=== PATIENT | male | born 1950 | race Caucasian/White ===

== ENCOUNTER 2020-11-22 18:43 | Observation (INO) | payer MEDICARE, OTHER ==
[~2020-11-22] VITALS: Ht 182.9 cm; Wt 102.2 kg
--- NOTE | 2020-11-22 19:34 | PHYS DOC ---
Past Medical History Past Medical History: Hypothyroid Additional Past Medical Histor: BPH, SLEEP APNEA Past Surgical History: Cholecystectomy Additional Past Surgical Histo: SHOULDER Smoking Status: Former Smoker Alcohol Use: None Adult General Chief Complaint Chief Complaint: OTHER COMPLAINTS HPI HPI Patient is a 70 year old male with a past medical history of hypothyroidism now presents emergency department complaining of an episode of unresponsiveness. Patient states that he was sleeping when his noticed that he suddenly became sonorous and had gasping breathing. states that she was having difficulty arousing the patient. States that he woke up and since then has had a pressure in the mid portion of his chest with some nausea and lightheadedness. Does state over the last few days has noted increasing sensation of shortness of breath with any type of exertion or activity. Patient does note that he has a history of obstructive sleep apnea and uses CPAP nightly. Denies any radiation of his symptoms right now. Denies any fever, chills, recent sick contacts Review of Systems Review of Systems Constitutional: Denies fever or chills [] Eyes: Denies change in visual acuity, redness, or eye pain [] HENT: Denies nasal congestion or sore throat [] Respiratory: Denies cough or shortness of breath [] Cardiovascular: No additional information not addressed in HPI [] GI: Denies abdominal pain, nausea, vomiting, bloody stools or diarrhea [] : Denies dysuria or hematuria [] Musculoskeletal: Denies back pain or joint pain [] Integument: Denies rash or skin lesions [] Neurologic: Denies headache, focal weakness or sensory changes [] Endocrine: Denies polyuria or polydipsia [] All other systems were reviewed and found to be within normal limits, except as documented in this note. Current Medications Current Medications Current Medications Medications (Trade) Dose Ordered Sig/Madhuri Start Time Stop Time Status Last Admin Dose Admin Acetaminophen (Tylenol) 650 mg PRN Q6HRS PRN 11/22/20 20:30 11/23/20 14:55 DC Al Hydroxide/Mg Hydroxide (Mylanta Plus Xs) 30 ml PRN Q3HRS PRN 11/22/20 20:30 11/23/20 14:55 DC Bisacodyl (Dulcolax Supp) 10 mg PRN DAILY PRN 11/22/20 20:30 11/23/20 14:55 DC Calcium Carbonate/ Glycine (Tums) 500 mg PRN Q3HRS PRN 11/22/20 20:30 11/23/20 14:55 DC Hydromorphone HCl (Dilaudid) 0.4 mg PRN Q1HR PRN 11/22/20 20:30 11/23/20 14:55 DC Magnesium Hydroxide (Milk Of Magnesia) 2,400 mg PRN Q12HR PRN 11/22/20 20:30 11/23/20 14:55 DC Morphine Sulfate (Morphine Sulfate) 2 mg PRN Q1HR PRN 11/22/20 20:30 11/23/20 14:55 DC Ondansetron HCl (Zofran) 4 mg PRN Q6HRS PRN 11/22/20 20:30 11/23/20 14:55 DC Zolpidem Tartrate (Ambien) 5 mg PRN QHS PRN 11/22/20 20:30 11/23/20 14:55 DC Allergies Allergies Allergies Coded Allergies Type Severity Reaction Last Updated Verified No Known Drug Allergies 11/22/20 No Physical Exam Physical Exam Constitutional: Well developed, well nourished, no acute distress, non-toxic appearance. [] HENT: Normocephalic, atraumatic, bilateral external ears normal, oropharynx moist, no oral exudates, nose normal. [] Eyes: PERRLA, EOMI, conjunctiva normal, no discharge. [] Neck: Normal range of motion, no tenderness, supple, no stridor. [] Cardiovascular:Heart rate regular rhythm, no murmur [] Lungs & Thorax: Bilateral breath sounds clear to auscultation [] Abdomen: Bowel sounds normal, soft, no tenderness, no masses, no pulsatile masses. [] Skin: Warm, dry, no erythema, no rash. [] Back: No tenderness, no CVA tenderness. [] Extremities: No tenderness, no cyanosis, no clubbing, ROM intact, no edema. [] Neurologic: Alert and oriented X 3, normal motor function, normal sensory function, no focal deficits noted. [] Psychologic: Affect normal, judgement normal, mood normal. [] Current Patient Data Vital Signs Vital Signs Date Time Temp Pulse Resp B/P (MAP) Pulse Ox O2 Delivery O2 Flow Rate FiO2 11/22/20 20:39 68 17 180/81 (114) 97 Room Air 11/22/20 19:10 97.6 97.6 Lab Values Laboratory Tests Test 11/22/20 19:20 White Blood Count 7.9 x10^3/uL (4.0-11.0) Red Blood Count 5.10 x10^6/uL (4.30-5.70) Hemoglobin 15.5 g/dL (13.0-17.5) Hematocrit 44.8 % (39.0-53.0) Mean Corpuscular Volume 88 fL (79-100) Mean Corpuscular Hemoglobin 30 pg (25-35) Mean Corpuscular Hemoglobin Concent 35 g/dL (31-37) Red Cell Distribution Width 12.9 % (11.5-14.5) Platelet Count 184 x10^3/uL (140-400) Neutrophils (%) (Auto) 66 % (31-73) Lymphocytes (%) (Auto) 20 % (24-48) L Monocytes (%) (Auto) 10 % (0-9) H Eosinophils (%) (Auto) 3 % (0-3) Basophils (%) (Auto) 1 % (0-3) Neutrophils # (Auto) 5.2 x10^3/uL (1.8-7.7) Lymphocytes # (Auto) 1.6 x10^3/uL (1.0-4.8) Monocytes # (Auto) 0.8 x10^3/uL (0.0-1.1) Eosinophils # (Auto) 0.3 x10^3/uL (0.0-0.7) Basophils # (Auto) 0.0 x10^3/uL (0.0-0.2) Sodium Level 143 mmol/L (136-145) Potassium Level 3.6 mmol/L (3.5-5.1) Chloride Level 104 mmol/L (98-107) Carbon Dioxide Level 28 mmol/L (21-32) Anion Gap 11 (6-14) Blood Urea Nitrogen 18 mg/dL (8-26) Creatinine 0.8 mg/dL (0.7-1.3) Estimated GFR (Cockcroft-Gault) 96.1 BUN/Creatinine Ratio 23 (6-20) H Glucose Level 124 mg/dL (70-99) H Calcium Level 9.4 mg/dL (8.5-10.1) Magnesium Level 1.9 mg/dL (1.8-2.4) Total Bilirubin 0.5 mg/dL (0.2-1.0) Aspartate Amino Transferase (AST) 19 U/L (15-37) Alanine Aminotransferase (ALT) 36 U/L (16-63) Alkaline Phosphatase 48 U/L (46-116) Troponin I Quantitative < 0.017 ng/mL (0.000-0.055) Total Protein 6.6 g/dL (6.4-8.2) Albumin 3.8 g/dL (3.4-5.0) Albumin/Globulin Ratio 1.4 (1.0-1.7) Laboratory Tests 11/22/20 19:20 Laboratory Tests 11/22/20 19:20 EKG EKG [] Radiology/Procedures Radiology/Procedures [] Course & Med Decision Making Course & Med Decision Making Pertinent Labs and Imaging studies reviewed. (See chart for details) 70M with a possible episode of syncope however based on the patient's complaints of worsening sensation of pressure in his chest and dizziness there is some concern that patient is demonstrating episodes of worsening angina which was precipitated by an episode of obstructive sleep apnea with hypoxia. At this time will obtain basic ACS work-up I anticipate that the patient would benefit from overnight stay to obtain a 2D echo to make sure there is no significant cardiac abnormality Dragon Disclaimer Dragon Disclaimer This electronic medical record was generated, in whole or in part, using a voice recognition dictation system. Departure Departure Disposition: 09 ADMITTED INPT THIS HOSP Condition: GOOD Scripts Metoprolol Tartrate (METOPROLOL TARTRATE) 50 Mg Tablet 50 MG PO BID for atrial fib, #60 TAB 1 Refill Prov: DAVID COMBS MD 11/23/20 Apixaban (ELIQUIS) 5 Mg Tablet 5 MG PO BID for atrial fib, #60 TAB 1 Refill Prov: DAVID COMBS MD 11/23/20 STEVE MARSHALL MD Nov 22, 2020 19:34
[2020-11-22 19:42] LABS: BASO % 1 % (0-3); EOS # 0.3 x10^3/uL (0.0-0.7); EOS % 3 % (0-3); HEMATOCRIT 44.8 % (39.0-53.0); HEMOGLOBIN 15.5 g/dL (13.0-17.5); LYMPH # 1.6 x10^3/uL (1.0-4.8); LYMPH % 20 % (24-48); MEAN CORPUSCULAR HEMOGLOBIN 30 pg (25-35); MEAN CORPUSCULAR HGB CONC 35 g/dL (31-37); MEAN CORPUSCULAR VOLUME 88 fL (79-100); MONO # 0.8 x10^3/uL (0.0-1.1); MONO % 10 % (0-9); NEUT # 5.2 x10^3/uL (1.8-7.7); NEUT % 66 % (31-73); PLATELET COUNT 184 x10^3/uL (140-400); RED CELL DISTRIBUTION WIDTH 12.9 % (11.5-14.5); WHITE BLOOD COUNT 7.9 x10^3/uL (4.0-11.0)
[2020-11-22 19:52] LABS: CALCIUM 9.4 mg/dL (8.5-10.1); CREATININE 0.8 mg/dL (0.7-1.3); GFR 96.1; POTASSIUM 3.6 mmol/L (3.5-5.1)
[2020-11-22 19:57] LABS: ALBUMIN 3.8 g/dL (3.4-5.0); ALBUMIN/GLOBULIN RATIO 1.4 (1.0-1.7); MAGNESIUM 1.9 mg/dL (1.8-2.4); TOTAL BILIRUBIN 0.5 mg/dL (0.2-1.0); TOTAL PROTEIN 6.6 g/dL (6.4-8.2)
--- NOTE | 2020-11-22 20:22 | RAD ---
Exam performed: One view chest. Indication: Reason: chest pain / Spl. Instructions: / History: Date of Service: 11/22/2020 7:44 PM Comparison: None available. Single AP upright portable view chest findings: Cardiomediastinal silhouette is mildly enlarged. No acute infiltrates, effusion or pneumothorax is d etected. The bony structures are normal. Impression: Mild cardiomegaly. No acute pulmonary findings seen Electronically signed by: Christie Moore MD (11/22/2020 8:19 PM) [facility] HOSPITALBrittni
[2020-11-22] MEDS ORDERED: ZOLPIDEM 5 MG TABLET. PO PRN (20:30)
[2020-11-22] MEDS ORDERED: MAGNESIUM HYDROXIDE 2,400 MG/30 ML ORAL.SUSP. PO PRN (20:30)
[2020-11-22] MEDS ORDERED: MORPHINE SULFATE 2 MG/ML VIAL. IV PRN (20:30)
[2020-11-22] MEDS ORDERED: HYDROmorphone 2 MG/ML VIAL IV PRN (20:30)
[2020-11-22] MEDS ORDERED: MAG HYDROX/ALUMINUM HYD/SIMETH 30 ML ORAL.SUSP PO PRN (20:30)
[2020-11-22] MEDS ORDERED: CALCIUM CARBONATE 500 MG TAB.CHEW PO PRN (20:30)
[2020-11-22] MEDS ORDERED: BISACODYL 10 MG SUPP.RECT. PR PRN (20:30)
[2020-11-22] MEDS ORDERED: ONDANSETRON PF 4 MG/2 ML VIAL. IVP PRN (20:30)
[2020-11-22] MEDS ORDERED: ACETAMINOPHEN 325 MG TABLET. PO PRN (20:30)
[2020-11-22 22:55] VITALS: BP 146/109
[2020-11-22 23:59] VITALS: BP 139/103
[2020-11-23] MEDS: HEPARIN for SUB-Q USE 5,000 UNIT/ML VIAL. SQ SCH ×2 (00:18→06:47)
[2020-11-23 03:34] VITALS: BP 149/68
[2020-11-23] MEDS ORDERED: LEVO150T PO (05:00)
[2020-11-23] MEDS ORDERED: ASPI-630 PO (05:00)
[2020-11-23] MEDS ORDERED: TAMS0.4C97 PO (05:00)
[2020-11-23] MEDS ORDERED: FINA5TAB4 PO (05:00)
[2020-11-23 07:00] VITALS: BP 145/95
[2020-11-23 07:59] LABS: BASO % 1 % (0-3); EOS # 0.1 x10^3/uL (0.0-0.7); EOS % 1 % (0-3); HEMATOCRIT 45.5 % (39.0-53.0); HEMOGLOBIN 15.7 g/dL (13.0-17.5); LYMPH # 1.3 x10^3/uL (1.0-4.8); LYMPH % 16 % (24-48); MEAN CORPUSCULAR HEMOGLOBIN 31 pg (25-35); MEAN CORPUSCULAR HGB CONC 35 g/dL (31-37); MEAN CORPUSCULAR VOLUME 88 fL (79-100); MONO # 0.8 x10^3/uL (0.0-1.1); MONO % 10 % (0-9); NEUT # 5.9 x10^3/uL (1.8-7.7); NEUT % 73 % (31-73); PLATELET COUNT 183 x10^3/uL (140-400); RED BLOOD COUNT 5.15 x10^6/uL (4.30-5.70); WHITE BLOOD COUNT 8.1 x10^3/uL (4.0-11.0)
[2020-11-23] MEDS ORDERED: POTASSIUM CHLORIDE 20 MEQ TABLET.ER. PO ONE (08:45)
[2020-11-23] MEDS ORDERED: FINASTERIDE 5 MG TABLET. PO SCH (09:00)
[2020-11-23] MEDS ORDERED: MAGNESIUM SULFATE 2GM 50 ML IV ONE (09:00)
[2020-11-23] MEDS ORDERED: LEVOTHYROXINE 150 MCG TABLET PO SCH (09:00)
[2020-11-23] MEDS ORDERED: ASPIRIN CHEWABLE 81 MG TABLET. PO SCH (09:00)
--- NOTE | 2020-11-23 09:18 | PDOC1 ---
History and Physical Date of Admission Date of Admission DATE: 11/23/20 TIME: 09:12 Source Source: Chart review, Patient History of Present Illness History of Present Illness Mr. Jaime, is a 70 year old male admit with an episode of unresponsiveness. He was sleeping in a chair without his CPAP, when his noticed that he suddenly became sonorous and had gasping breathing. She felt like he didnt breathe for almost 2 mintues, and was hard to arouse. when he awoke he had chest pain, 5/10 that is now improved, and nausea for awhile that is nwo improevd. he had some lightheadedness. He had a workup almost 15 years ago after periods of angina and palpitations, and has not had them since. W/u neg at that time, with stress test and echo. Does state over the last few days has noted increasing sensation of shortness of breath with any type of exertion or activity. Patient does note that he has a history of obstructive sleep apnea and uses CPAP nightly. Denies any radiation of his symptoms right now. Past Medical History Cardiovascular: HTN Pulmonary: No pertinent hx Renal/: Benign prostatic enlarg. Endocrine: No pertinent hx Dermatology: No pertinent hx Family History Family History: No Significant (his mom is 92 and healthy) Social History Smoke: No ALCOHOL: none Drugs: None Current Medications Current Medications Current Medications Ondansetron HCl (Zofran) 4 mg PRN Q6HRS PRN IVP NAUSEA/VOMITING; Start 11/22/20 at 20:30 Al Hydroxide/Mg Hydroxide (Mylanta Plus Xs) 30 ml PRN Q3HRS PRN PO HEARTBURN / GAS; Start 11/22/20 at 20:30 Calcium Carbonate/ Glycine (Tums) 500 mg PRN Q3HRS PRN PO UPSET STOMACH; Start 11/22/20 at 20:30 Zolpidem Tartrate (Ambien) 5 mg PRN QHS PRN PO INSOMNIA, MAY REPEAT IN 1HR; Start 11/22/20 at 20:30 Morphine Sulfate (Morphine Sulfate) 2 mg PRN Q1HR PRN IV PAIN; Start 11/22/20 at 20:30 Hydromorphone HCl (Dilaudid) 0.4 mg PRN Q1HR PRN IV PAIN; Start 11/22/20 at 20:30 Acetaminophen (Tylenol) 650 mg PRN Q6HRS PRN PO Headaches, Temp > 101.5F; Start 11/22/20 at 20:30 Magnesium Hydroxide (Milk Of Magnesia) 2,400 mg PRN Q12HR PRN PO CONSTIPATION; Start 11/22/20 at 20:30 Bisacodyl (Dulcolax Supp) 10 mg PRN DAILY PRN ME CONSTIPATION; Start 11/22/20 at 20:30 Heparin Sodium (Porcine) (Heparin Sodium) 5,000 unit Q8HRS SQ Last administered on 11/23/20at 06:47; Start 11/22/20 at 22:00 Active Scripts Active Reported Aspirin 81 Mg Tab.chew 1 Tab PO DAILY Synthroid (Levothyroxine Sodium) 150 Mcg Tablet 1 Tab PO DAILY06 Finasteride 5 Mg Tablet 1 Tab PO DAILY Flomax (Tamsulosin Hcl) 0.4 Mg Cap.er.24h 2 Cap PO HS Allergies Allergies: Coded Allergies: No Known Drug Allergies (Unverified , 11/22/20) ROS General: No: Chills, Night Sweats, Fatigue, Malaise, Appetite, Other PSYCHOLOGICAL ROS: No: Anxiety, Behavioral Disorder, Concentration difficultie, Decreased libido, Depression, Disorientation, Hallucinations, Hostility, Irritablity, Memory difficulties, Mood Swings, Obsessive thoughts, Physical abuse, Sexual abuse, Sleep disturbances, Suicidal ideation, Other Eyes: No Blurry vision, No Decreased vision, No Double vision, No Dry eyes, No Excessive tearing, No Eye Pain, No Itchy Eyes, No Loss of vision, No Photophobia, No Scotomata, No Uses contacts, No Uses glasses, No Other HEENT: No: Heacaches, Visual Changes, Hearing change, Nasal congestion, Nasal discharge, Oral lesions, Sinus pain, Sore Throat, Epistaxis, Sneezing, Snoring, Tinnitus, Vertigo, Vocal changes, Other Respiratory: No: Cough, Hemoptysis, Orthopnea, Pleuritic Pain, Shortness of breath, SOB with excertion, Sputum Changes, Stridor, Tachypnea, Wheezing, Other Cardiovascular: yes Chest Pain; No Palpitations, No Orthopnea, No Paroxysmal Noc. Dyspnea, No Edema, No Lt Headedness, No Other Gastrointestinal: Yes Nausea Genitourinary: No Dysuria, No Frequency, No Incontinence, No Hematuria, No Retention, No Discharge, No Urgency, No Pain, No Flank Pain, No Other, No , No , No , No , No , No , No Musculoskeletal: No Gait Disturbance, No Joint Pain, No Joint Stiffness, No Joint Swelling, No Muscle Pain, No Muscular Weakness, No Pain In:, No Swelling In:, No Other Neurological: No Behavorial Changes, No Bowel/Bladder ControlChng, No Confusion, No Dizziness, No Gait Disturbance, No Headaches, No Impaired Coord /balance, No Memory Loss, No Numbness/Tingling, No Seizures, No Speech Problems, No Tremors, No Visual Changes, No Weakness, No Other Skin: No Dry Skin, No Eczema, No Hair Changes, No Lumps, No Mole Changes, No Mottling, No Nail Changes, No Pruritus, No Rash, No Skin Lesion Changes, No Other, No Acne Physical Exam General: Oriented X3, Cooperative, No acute distress HEENT: PERRLA, Mucous membr. moist/pink Lungs: Clear to auscultation Heart: S1S2, RRR, no gallops, no murmurs Extremities: No clubbing, No edema, Normal pulses Skin: No rashes, No breakdown, No significant lesion Neuro: Normal speech, Normal tone, Sensation intact Psych/Mental Status: Mental status NL, Mood NL Vitals Vitals Vital Signs Date Time Temp Pulse Resp B/P (MAP) Pulse Ox O2 Delivery O2 Flow Rate FiO2 11/23/20 07:00 98.0 70 16 145/95 (112) 98 Nasal Cannula 2.0 98.0 Labs Labs Laboratory Tests Test 11/22/20 19:20 11/23/20 00:30 11/23/20 07:20 White Blood Count 7.9 x10^3/uL (4.0-11.0) 8.1 x10^3/uL (4.0-11.0) Red Blood Count 5.10 x10^6/uL (4.30-5.70) 5.15 x10^6/uL (4.30-5.70) Hemoglobin 15.5 g/dL (13.0-17.5) 15.7 g/dL (13.0-17.5) Hematocrit 44.8 % (39.0-53.0) 45.5 % (39.0-53.0) Mean Corpuscular Volume 88 fL (79-100) 88 fL (79-100) Mean Corpuscular Hemoglobin 30 pg (25-35) 31 pg (25-35) Mean Corpuscular Hemoglobin Concent 35 g/dL (31-37) 35 g/dL (31-37) Red Cell Distribution Width 12.9 % (11.5-14.5) 13.0 % (11.5-14.5) Platelet Count 184 x10^3/uL (140-400) 183 x10^3/uL (140-400) Neutrophils (%) (Auto) 66 % (31-73) 73 % (31-73) Lymphocytes (%) (Auto) 20 % (24-48) 16 % (24-48) Monocytes (%) (Auto) 10 % (0-9) 10 % (0-9) Eosinophils (%) (Auto) 3 % (0-3) 1 % (0-3) Basophils (%) (Auto) 1 % (0-3) 1 % (0-3) Neutrophils # (Auto) 5.2 x10^3/uL (1.8-7.7) 5.9 x10^3/uL (1.8-7.7) Lymphocytes # (Auto) 1.6 x10^3/uL (1.0-4.8) 1.3 x10^3/uL (1.0-4.8) Monocytes # (Auto) 0.8 x10^3/uL (0.0-1.1) 0.8 x10^3/uL (0.0-1.1) Eosinophils # (Auto) 0.3 x10^3/uL (0.0-0.7) 0.1 x10^3/uL (0.0-0.7) Basophils # (Auto) 0.0 x10^3/uL (0.0-0.2) 0.0 x10^3/uL (0.0-0.2) Sodium Level 143 mmol/L (136-145) Potassium Level 3.6 mmol/L (3.5-5.1) Chloride Level 104 mmol/L (98-107) Carbon Dioxide Level 28 mmol/L (21-32) Anion Gap 11 (6-14) Blood Urea Nitrogen 18 mg/dL (8-26) Creatinine 0.8 mg/dL (0.7-1.3) Estimated GFR (Cockcroft-Gault) 96.1 BUN/Creatinine Ratio 23 (6-20) Glucose Level 124 mg/dL (70-99) Calcium Level 9.4 mg/dL (8.5-10.1) Magnesium Level 1.9 mg/dL (1.8-2.4) Total Bilirubin 0.5 mg/dL (0.2-1.0) Aspartate Amino Transf (AST/SGOT) 19 U/L (15-37) Alanine Aminotransferase (ALT/SGPT) 36 U/L (16-63) Alkaline Phosphatase 48 U/L (46-116) Troponin I Quantitative < 0.017 ng/mL (0.000-0.055) < 0.017 ng/mL (0.000-0.055) < 0.017 ng/mL (0.000-0.055) Total Protein 6.6 g/dL (6.4-8.2) Albumin 3.8 g/dL (3.4-5.0) Albumin/Globulin Ratio 1.4 (1.0-1.7) Laboratory Tests Test 11/22/20 19:20 11/23/20 00:30 11/23/20 07:20 White Blood Count 7.9 x10^3/uL (4.0-11.0) 8.1 x10^3/uL (4.0-11.0) Red Blood Count 5.10 x10^6/uL (4.30-5.70) 5.15 x10^6/uL (4.30-5.70) Hemoglobin 15.5 g/dL (13.0-17.5) 15.7 g/dL (13.0-17.5) Hematocrit 44.8 % (39.0-53.0) 45.5 % (39.0-53.0) Mean Corpuscular Volume 88 fL (79-100) 88 fL (79-100) Mean Corpuscular Hemoglobin 30 pg (25-35) 31 pg (25-35) Mean Corpuscular Hemoglobin Concent 35 g/dL (31-37) 35 g/dL (31-37) Red Cell Distribution Width 12.9 % (11.5-14.5) 13.0 % (11.5-14.5) Platelet Count 184 x10^3/uL (140-400) 183 x10^3/uL (140-400) Neutrophils (%) (Auto) 66 % (31-73) 73 % (31-73) Lymphocytes (%) (Auto) 20 % (24-48) 16 % (24-48) Monocytes (%) (Auto) 10 % (0-9) 10 % (0-9) Eosinophils (%) (Auto) 3 % (0-3) 1 % (0-3) Basophils (%) (Auto) 1 % (0-3) 1 % (0-3) Neutrophils # (Auto) 5.2 x10^3/uL (1.8-7.7) 5.9 x10^3/uL (1.8-7.7) Lymphocytes # (Auto) 1.6 x10^3/uL (1.0-4.8) 1.3 x10^3/uL (1.0-4.8) Monocytes # (Auto) 0.8 x10^3/uL (0.0-1.1) 0.8 x10^3/uL (0.0-1.1) Eosinophils # (Auto) 0.3 x10^3/uL (0.0-0.7) 0.1 x10^3/uL (0.0-0.7) Basophils # (Auto) 0.0 x10^3/uL (0.0-0.2) 0.0 x10^3/uL (0.0-0.2) Sodium Level 143 mmol/L (136-145) Potassium Level 3.6 mmol/L (3.5-5.1) Chloride Level 104 mmol/L (98-107) Carbon Dioxide Level 28 mmol/L (21-32) Anion Gap 11 (6-14) Blood Urea Nitrogen 18 mg/dL (8-26) Creatinine 0.8 mg/dL (0.7-1.3) Estimated GFR (Cockcroft-Gault) 96.1 BUN/Creatinine Ratio 23 (6-20) Glucose Level 124 mg/dL (70-99) Calcium Level 9.4 mg/dL (8.5-10.1) Magnesium Level 1.9 mg/dL (1.8-2.4) Total Bilirubin 0.5 mg/dL (0.2-1.0) Aspartate Amino Transf (AST/SGOT) 19 U/L (15-37) Alanine Aminotransferase (ALT/SGPT) 36 U/L (16-63) Alkaline Phosphatase 48 U/L (46-116) Troponin I Quantitative < 0.017 ng/mL (0.000-0.055) < 0.017 ng/mL (0.000-0.055) < 0.017 ng/mL (0.000-0.055) Total Protein 6.6 g/dL (6.4-8.2) Albumin 3.8 g/dL (3.4-5.0) Albumin/Globulin Ratio 1.4 (1.0-1.7) VTE Prophylaxis Ordered VTE Prophylaxis Devices: Yes VTE Pharmacological Prophylaxi: Yes Assessment/Plan Assessment/Plan chest pain, nausea, no event overnght, Tachycardia overnight, small events of AFIB, paroxysmal afib, start metoprolol and eliquis cardiac silouette enlarged, ECHO obese, BMI 31 htn, start metoprolol hypothyroid, replaced, checked within the past [address] Handley admit obs CV consult Justifications for Admission Other Justification Chest pain, dyspnea on exertion DAVID COMBS MD Nov 23, 2020 09:18
[2020-11-23 09:21] LABS: CALCIUM 9.1 mg/dL (8.5-10.1); CREATININE 0.8 mg/dL (0.7-1.3); GFR 96.1; POTASSIUM 4.2 mmol/L (3.5-5.1)
[2020-11-23] MEDS ORDERED: ANTI-COAG MONITOR BY PHARMACY. MC PRN (09:30)
[2020-11-23] MEDS ORDERED: APIXABAN 5 MG TABLET. PO SCH (10:00)
[2020-11-23] MEDS ORDERED: METOPROLOL TART IMMED RELEASE 50 MG TABLET. PO SCH (10:00)
[2020-11-23 11:00] VITALS: BP 144/102
[2020-11-23] MEDS ORDERED: APIX5TAB PO (12:31)
[2020-11-23] MEDS ORDERED: METO50TA6 PO (12:31)
--- NOTE | 2020-11-23 14:40 | NUR ---
Discharge Note: RONALDO TAN [address] [place] [address] Discharge instructions and discharge home medications reviewed with Patient and a copy given. All questions have been answered and understanding verbalized. The following instructions and handouts were given: discharge instructions, cardiology's card/info, CP info, HTN info, metoprolol & eliquis info. Discontinued lines and drains: Peripheral IV intact. Patient discharged to Home or Self Care with Family Member via [facility] at 1440.
--- NOTE | 2020-11-23 14:43 | PDOC3 ---
Discharge Summary Visit Information Date of Admission: Nov 22, 2020 Date of Discharge: Nov 23, 2020 Final Diagnosis chest pain, nausea, AFIB, paroxysmal afib, start metoprolol and eliquis cardiac silouette enlarged, ECHO, outpatient obese, BMI 31 htn, start metoprolol hypothyroid, replaced, checked within the past [address] Handley admscar obs Brief Hospital Course Allergies Allergies Coded Allergies Type Severity Reaction Last Updated Verified No Known Drug Allergies 11/22/20 No Vital Signs Vital Signs Date Time Temp Pulse Resp B/P (MAP) Pulse Ox O2 Delivery O2 Flow Rate FiO2 11/23/20 11:00 98.0 63 16 144/102 (116) 96 Nasal Cannula 2.0 98.0 Lab Results Laboratory Tests Test 11/22/20 19:20 11/23/20 00:30 11/23/20 07:20 White Blood Count 7.9 x10^3/uL (4.0-11.0) 8.1 x10^3/uL (4.0-11.0) Red Blood Count 5.10 x10^6/uL (4.30-5.70) 5.15 x10^6/uL (4.30-5.70) Hemoglobin 15.5 g/dL (13.0-17.5) 15.7 g/dL (13.0-17.5) Hematocrit 44.8 % (39.0-53.0) 45.5 % (39.0-53.0) Mean Corpuscular Volume 88 fL (79-100) 88 fL (79-100) Mean Corpuscular Hemoglobin 30 pg (25-35) 31 pg (25-35) Mean Corpuscular Hemoglobin Concent 35 g/dL (31-37) 35 g/dL (31-37) Red Cell Distribution Width 12.9 % (11.5-14.5) 13.0 % (11.5-14.5) Platelet Count 184 x10^3/uL (140-400) 183 x10^3/uL (140-400) Neutrophils (%) (Auto) 66 % (31-73) 73 % (31-73) Lymphocytes (%) (Auto) 20 % (24-48) 16 % (24-48) Monocytes (%) (Auto) 10 % (0-9) 10 % (0-9) Eosinophils (%) (Auto) 3 % (0-3) 1 % (0-3) Basophils (%) (Auto) 1 % (0-3) 1 % (0-3) Neutrophils # (Auto) 5.2 x10^3/uL (1.8-7.7) 5.9 x10^3/uL (1.8-7.7) Lymphocytes # (Auto) 1.6 x10^3/uL (1.0-4.8) 1.3 x10^3/uL (1.0-4.8) Monocytes # (Auto) 0.8 x10^3/uL (0.0-1.1) 0.8 x10^3/uL (0.0-1.1) Eosinophils # (Auto) 0.3 x10^3/uL (0.0-0.7) 0.1 x10^3/uL (0.0-0.7) Basophils # (Auto) 0.0 x10^3/uL (0.0-0.2) 0.0 x10^3/uL (0.0-0.2) Sodium Level 143 mmol/L (136-145) 144 mmol/L (136-145) Potassium Level 3.6 mmol/L (3.5-5.1) 4.2 mmol/L (3.5-5.1) Chloride Level 104 mmol/L (98-107) 107 mmol/L (98-107) Carbon Dioxide Level 28 mmol/L (21-32) 29 mmol/L (21-32) Anion Gap 11 (6-14) 8 (6-14) Blood Urea Nitrogen 18 mg/dL (8-26) 17 mg/dL (8-26) Creatinine 0.8 mg/dL (0.7-1.3) 0.8 mg/dL (0.7-1.3) Estimated GFR (Cockcroft-Gault) 96.1 96.1 BUN/Creatinine Ratio 23 (6-20) Glucose Level 124 mg/dL (70-99) 108 mg/dL (70-99) Calcium Level 9.4 mg/dL (8.5-10.1) 9.1 mg/dL (8.5-10.1) Magnesium Level 1.9 mg/dL (1.8-2.4) Total Bilirubin 0.5 mg/dL (0.2-1.0) Aspartate Amino Transf (AST/SGOT) 19 U/L (15-37) Alanine Aminotransferase (ALT/SGPT) 36 U/L (16-63) Alkaline Phosphatase 48 U/L (46-116) Troponin I Quantitative < 0.017 ng/mL (0.000-0.055) < 0.017 ng/mL (0.000-0.055) < 0.017 ng/mL (0.000-0.055) Total Protein 6.6 g/dL (6.4-8.2) Albumin 3.8 g/dL (3.4-5.0) Albumin/Globulin Ratio 1.4 (1.0-1.7) Laboratory Tests Test 11/22/20 19:20 11/23/20 00:30 11/23/20 07:20 White Blood Count 7.9 x10^3/uL (4.0-11.0) 8.1 x10^3/uL (4.0-11.0) Red Blood Count 5.10 x10^6/uL (4.30-5.70) 5.15 x10^6/uL (4.30-5.70) Hemoglobin 15.5 g/dL (13.0-17.5) 15.7 g/dL (13.0-17.5) Hematocrit 44.8 % (39.0-53.0) 45.5 % (39.0-53.0) Mean Corpuscular Volume 88 fL (79-100) 88 fL (79-100) Mean Corpuscular Hemoglobin 30 pg (25-35) 31 pg (25-35) Mean Corpuscular Hemoglobin Concent 35 g/dL (31-37) 35 g/dL (31-37) Red Cell Distribution Width 12.9 % (11.5-14.5) 13.0 % (11.5-14.5) Platelet Count 184 x10^3/uL (140-400) 183 x10^3/uL (140-400) Neutrophils (%) (Auto) 66 % (31-73) 73 % (31-73) Lymphocytes (%) (Auto) 20 % (24-48) 16 % (24-48) Monocytes (%) (Auto) 10 % (0-9) 10 % (0-9) Eosinophils (%) (Auto) 3 % (0-3) 1 % (0-3) Basophils (%) (Auto) 1 % (0-3) 1 % (0-3) Neutrophils # (Auto) 5.2 x10^3/uL (1.8-7.7) 5.9 x10^3/uL (1.8-7.7) Lymphocytes # (Auto) 1.6 x10^3/uL (1.0-4.8) 1.3 x10^3/uL (1.0-4.8) Monocytes # (Auto) 0.8 x10^3/uL (0.0-1.1) 0.8 x10^3/uL (0.0-1.1) Eosinophils # (Auto) 0.3 x10^3/uL (0.0-0.7) 0.1 x10^3/uL (0.0-0.7) Basophils # (Auto) 0.0 x10^3/uL (0.0-0.2) 0.0 x10^3/uL (0.0-0.2) Sodium Level 143 mmol/L (136-145) 144 mmol/L (136-145) Potassium Level 3.6 mmol/L (3.5-5.1) 4.2 mmol/L (3.5-5.1) Chloride Level 104 mmol/L (98-107) 107 mmol/L (98-107) Carbon Dioxide Level 28 mmol/L (21-32) 29 mmol/L (21-32) Anion Gap 11 (6-14) 8 (6-14) Blood Urea Nitrogen 18 mg/dL (8-26) 17 mg/dL (8-26) Creatinine 0.8 mg/dL (0.7-1.3) 0.8 mg/dL (0.7-1.3) Estimated GFR (Cockcroft-Gault) 96.1 96.1 BUN/Creatinine Ratio 23 (6-20) Glucose Level 124 mg/dL (70-99) 108 mg/dL (70-99) Calcium Level 9.4 mg/dL (8.5-10.1) 9.1 mg/dL (8.5-10.1) Magnesium Level 1.9 mg/dL (1.8-2.4) Total Bilirubin 0.5 mg/dL (0.2-1.0) Aspartate Amino Transf (AST/SGOT) 19 U/L (15-37) Alanine Aminotransferase (ALT/SGPT) 36 U/L (16-63) Alkaline Phosphatase 48 U/L (46-116) Troponin I Quantitative < 0.017 ng/mL (0.000-0.055) < 0.017 ng/mL (0.000-0.055) < 0.017 ng/mL (0.000-0.055) Total Protein 6.6 g/dL (6.4-8.2) Albumin 3.8 g/dL (3.4-5.0) Albumin/Globulin Ratio 1.4 (1.0-1.7) Brief Hospital Course Mr. Jaime is a 70 old male, went poorly responsive and stopped breathing while sleeping, then chest pain and nausea. admit here, Afib with RVR to 135 range a few times overnight, start meds, f/u cardiolgoy htn 165 range cardio image large on CXR, needs echo, f/u tests as outpatient f/u Dr. Demetrio Handley next week Discharge Information Condition at Discharge: Improved Follow Up: Weeks Disposition/Orders: D/C to Home Scheduled Apixaban (Eliquis) 5 Mg Tablet, 5 MG PO BID for atrial fib, #60 Ref 1 Prescribed by: DAVID COMBS on 11/23/20 1231 Aspirin (Aspirin) 81 Mg Tab.chew, 1 TAB PO DAILY for antiplatelet, #30 Ref 3 (Reported) last dose 11/23 10:06 Entered as Reported by: GLADYS VICTORIA on 11/23/20 0500 Last Action: Continued on 11/23/20843 by DAVID COMBS Finasteride (Finasteride) 5 Mg Tablet, 1 TAB PO DAILY for BPH, #30 Ref 11 (Re ported) last dose 11/23 10:06am next dose 11/24 9:00am Entered as Reported by: GLADYS VICTORIA on 11/23/20 0500 Last Action: Continued on 11/23/20843 by DAVID COMBS Levothyroxine Sodium (Synthroid) 150 Mcg Tablet, 1 TAB PO DAILY06 for thyroid, #30 Ref 5 (Reported) last dose 11/23 10:06am next dose 11/24 7:00am Entered as Reported by: GLADYS VICTORIA on 11/23/20 0500 Last Action: Continued on 11/23/20843 by DAVID COMBS Metoprolol Tartrate (Metoprolol Tartrate) 50 Mg Tablet, 50 MG PO BID for atrial fib, #60 Ref 1 Prescribed by: DAVID COMBS on 11/23/20 1231 Tamsulosin Hcl (Flomax) 0.4 Mg Cap.er.24h, 2 CAP PO HS for BPH, #30 Ref 11 (Reported) next dose 11/23 9:00pm Entered as Reported by: GLADYS VICTORIA on 11/23/20 0500 Last Action: Continued on 11/23/20843 by DAVID COMBS Patient Instructions Patient Instructions A/d same day pt seen x3 Justicifation of Admission Dx: Justifications for Admission: Justification of Admission Dx: DAVID Escamilla MD Nov 23, 2020 14:43
--- NOTE | 2020-11-23 15:59 | PDOC2 ---
CONSULT Date of Consult Date of Consult DATE: 11/23/20 TIME: 15:54 Reason for Consult Reason for Consult: Chest pain Referring Physician Referring Physician: Dr. Pelletier Identification/Chief Complaint Chief Complaint Decreased responsiveness Source Source: Chart review, Patient History of Present Illness Reason for Visit: The patient is a 70-year-old male with a history of sleep apnea treated with CPAP. He reportedly had an episode of decreased responsiveness described as gasping breathing. Following this he had mild chest discomfort and shortness of breath. He is brought for evaluation in the emergency room. Patient's chest x- ray showed no acute changes but did suggest mild cardiomegaly. He was admitted for a rule out. He had an episode of atrial fibrillation overnight but is now resumed a sinus rhythm. Troponins have been normal x3. EKG shows no acute ischemic changes. This morning he is feeling well. He strongly wishes to go home. Past Medical History Cardiovascular: HTN Pulmonary: No pertinent hx, Other (Sleep apnea) Renal/: Benign prostatic enlarg. Endocrine: Hypothyroidism Dermatology: No pertinent hx Past Surgical History Past Surgical History: Cholecystectomy Family History Family History: No Significant (his mom is 92 and healthy) Social History Quit ALCOHOL: none Drugs: None Current Medications Current Medications Current Medications Ondansetron HCl (Zofran) 4 mg PRN Q6HRS PRN IVP NAUSEA/VOMITING; Start 11/22/20 at 20:30; Stop 11/23/20 at 14:55; Status DC Al Hydroxide/Mg Hydroxide (Mylanta Plus Xs) 30 ml PRN Q3HRS PRN PO HEARTBURN / GAS; Start 11/22/20 at 20:30; Stop 11/23/20 at 14:55; Status DC Calcium Carbonate/ Glycine (Tums) 500 mg PRN Q3HRS PRN PO UPSET STOMACH; Start 11/22/20 at 20:30; Stop 11/23/20 at 14:55; Status DC Zolpidem Tartrate (Ambien) 5 mg PRN QHS PRN PO INSOMNIA, MAY REPEAT IN 1HR; Start 11/22/20 at 20:30; Stop 11/23/20 at 14:55; Status DC Morphine Sulfate (Morphine Sulfate) 2 mg PRN Q1HR PRN IV PAIN; Start 11/22/20 at 20:30; Stop 11/23/20 at 14:55; Status DC Hydromorphone HCl (Dilaudid) 0.4 mg PRN Q1HR PRN IV PAIN; Start 11/22/20 at 20:30; Stop 11/23/20 at 14:55; Status DC Acetaminophen (Tylenol) 650 mg PRN Q6HRS PRN PO Headaches, Temp > 101.5F; Start 11/22/20 at 20:30; Stop 11/23/20 at 14:55; Status DC Magnesium Hydroxide (Milk Of Magnesia) 2,400 mg PRN Q12HR PRN PO CONSTIPATION; Start 11/22/20 at 20:30; Stop 11/23/20 at 14:55; Status DC Bisacodyl (Dulcolax Supp) 10 mg PRN DAILY PRN [place] CONSTIPATION; Start 11/22/20 at 20:30; Stop 11/23/20 at 14:55; Status DC Heparin Sodium (Porcine) (Heparin Sodium) 5,000 unit Q8HRS SQ Last administered on 11/23/20at 06:47; Start 11/22/20 at 22:00; Stop 11/23/20 at 14:55; Status DC Aspirin (Aspirin Chewable) 81 mg DAILY08 PO Last administered on 11/23/20at 10:06; Start 11/23/20 at 09:00; Stop 11/23/20 at 14:55; Status DC Finasteride (Proscar) 5 mg DAILY PO Last administered on 11/23/20at 10:08; Start 11/23/20 at 09:00; Stop 11/23/20 at 14:55; Status DC Levothyroxine Sodium (Synthroid) 150 mcg DAILY06 PO Last administered on 11/23/20at 10:08; Start 11/23/20 at 09:00; Stop 11/23/20 at 14:55; Status DC Tamsulosin HCl (Flomax) 0.8 mg HS PO ; Start 11/23/20 at 21:00; Stop 11/23/20 at 14:55; Status DC Potassium Chloride (Klor-Con) 40 meq 1X ONCE PO ; Start 11/23/20 at 08:45; Stop 11/23/20 at 11:33; Status DC Magnesium Sulfate 50 ml @ 25 mls/hr 1X ONCE IV Last administered on 11/23/20at 10:16; Start 11/23/20 at 09:00; Stop 11/23/20 at 10:59; Status DC Metoprolol Tartrate (Lopressor) 50 mg BID PO Last administered on 11/23/20at 10:07; Start 11/23/20 at 10:00; Stop 11/23/20 at 14:55; Status DC Apixaban (Eliquis) 5 mg BID PO Last administered on 11/23/20at 10:07; Start 11/23/20 at 10:00; Stop 11/23/20 at 14:55; Status DC Info (Anti-Coagulation Monitoring By Pharmacy) 1 each PRN DAILY PRN MC SEE COMMENTS; Start 11/23/20 at 09:30; Stop 11/23/20 at 14:55; Status DC Active Scripts Active Metoprolol Tartrate 50 Mg Tablet 50 Mg PO BID Eliquis (Apixaban) 5 Mg Tablet 5 Mg PO BID Reported Aspirin 81 Mg Tab.chew 1 Tab PO DAILY last dose 11/23 10:06 Synthroid (Levothyroxine Sodium) 150 Mcg Tablet 1 Tab PO DAILY06 last dose 11/23 10:06am next dose 11/24 7:00am Finasteride 5 Mg Tablet 1 Tab PO DAILY last dose 11/23 10:06am next dose 11/24 9:00am Flomax (Tamsulosin Hcl) 0.4 Mg Cap.er.24h 2 Cap PO HS next dose 11/23 9:00pm Allergies Allergies: Coded Allergies: No Known Drug Allergies (Unverified , 11/22/20) ROS Respiratory: YES: Shortness of breath Cardiovascular: yes Chest Pain Physical Exam General: No acute distress HEENT: Atraumatic Lungs: Clear to auscultation Heart: Regular rate Abdomen: Normal bowel sounds Vitals VITALS Vital Signs Date Time Temp Pulse Resp B/P (MAP) Pulse Ox O2 Delivery O2 Flow Rate FiO2 11/23/20 11:00 98.0 63 16 144/102 (116) 96 Nasal Cannula 2.0 98.0 Labs Labs Laboratory Tests Test 11/22/20 19:20 11/23/20 00:30 11/23/20 07:20 White Blood Count 7.9 x10^3/uL (4.0-11.0) 8.1 x10^3/uL (4.0-11.0) Red Blood Count 5.10 x10^6/uL (4.30-5.70) 5.15 x10^6/uL (4.30-5.70) Hemoglobin 15.5 g/dL (13.0-17.5) 15.7 g/dL (13.0-17.5) Hematocrit 44.8 % (39.0-53.0) 45.5 % (39.0-53.0) Mean Corpuscular Volume 88 fL (79-100) 88 fL (79-100) Mean Corpuscular Hemoglobin 30 pg (25-35) 31 pg (25-35) Mean Corpuscular Hemoglobin Concent 35 g/dL (31-37) 35 g/dL (31-37) Red Cell Distribution Width 12.9 % (11.5-14.5) 13.0 % (11.5-14.5) Platelet Count 184 x10^3/uL (140-400) 183 x10^3/uL (140-400) Neutrophils (%) (Auto) 66 % (31-73) 73 % (31-73) Lymphocytes (%) (Auto) 20 % (24-48) 16 % (24-48) Monocytes (%) (Auto) 10 % (0-9) 10 % (0-9) Eosinophils (%) (Auto) 3 % (0-3) 1 % (0-3) Basophils (%) (Auto) 1 % (0-3) 1 % (0-3) Neutrophils # (Auto) 5.2 x10^3/uL (1.8-7.7) 5.9 x10^3/uL (1.8-7.7) Lymphocytes # (Auto) 1.6 x10^3/uL (1.0-4.8) 1.3 x10^3/uL (1.0-4.8) Monocytes # (Auto) 0.8 x10^3/uL (0.0-1.1) 0.8 x10^3/uL (0.0-1.1) Eosinophils # (Auto) 0.3 x10^3/uL (0.0-0.7) 0.1 x10^3/uL (0.0-0.7) Basophils # (Auto) 0.0 x10^3/uL (0.0-0.2) 0.0 x10^3/uL (0.0-0.2) Sodium Level 143 mmol/L (136-145) 144 mmol/L (136-145) Potassium Level 3.6 mmol/L (3.5-5.1) 4.2 mmol/L (3.5-5.1) Chloride Level 104 mmol/L (98-107) 107 mmol/L (98-107) Carbon Dioxide Level 28 mmol/L (21-32) 29 mmol/L (21-32) Anion Gap 11 (6-14) 8 (6-14) Blood Urea Nitrogen 18 mg/dL (8-26) 17 mg/dL (8-26) Creatinine 0.8 mg/dL (0.7-1.3) 0.8 mg/dL (0.7-1.3) Estimated GFR (Cockcroft-Gault) 96.1 96.1 BUN/Creatinine Ratio 23 (6-20) Glucose Level 124 mg/dL (70-99) 108 mg/dL (70-99) Calcium Level 9.4 mg/dL (8.5-10.1) 9.1 mg/dL (8.5-10.1) Magnesium Level 1.9 mg/dL (1.8-2.4) Total Bilirubin 0.5 mg/dL (0.2-1.0) Aspartate Amino Transf (AST/SGOT) 19 U/L (15-37) Alanine Aminotransferase (ALT/SGPT) 36 U/L (16-63) Alkaline Phosphatase 48 U/L (46-116) Troponin I Quantitative < 0.017 ng/mL (0.000-0.055) < 0.017 ng/mL (0.000-0.055) < 0.017 ng/mL (0.000-0.055) Total Protein 6.6 g/dL (6.4-8.2) Albumin 3.8 g/dL (3.4-5.0) Albumin/Globulin Ratio 1.4 (1.0-1.7) Laboratory Tests Test 11/22/20 19:20 11/23/20 00:30 11/23/20 07:20 White Blood Count 7.9 x10^3/uL (4.0-11.0) 8.1 x10^3/uL (4.0-11.0) Red Blood Count 5.10 x10^6/uL (4.30-5.70) 5.15 x10^6/uL (4.30-5.70) Hemoglobin 15.5 g/dL (13.0-17.5) 15.7 g/dL (13.0-17.5) Hematocrit 44.8 % (39.0-53.0) 45.5 % (39.0-53.0) Mean Corpuscular Volume 88 fL (79-100) 88 fL (79-100) Mean Corpuscular Hemoglobin 30 pg (25-35) 31 pg (25-35) Mean Corpuscular Hemoglobin Concent 35 g/dL (31-37) 35 g/dL (31-37) Red Cell Distribution Width 12.9 % (11.5-14.5) 13.0 % (11.5-14.5) Platelet Count 184 x10^3/uL (140-400) 183 x10^3/uL (140-400) Neutrophils (%) (Auto) 66 % (31-73) 73 % (31-73) Lymphocytes (%) (Auto) 20 % (24-48) 16 % (24-48) Monocytes (%) (Auto) 10 % (0-9) 10 % (0-9) Eosinophils (%) (Auto) 3 % (0-3) 1 % (0-3) Basophils (%) (Auto) 1 % (0-3) 1 % (0-3) Neutrophils # (Auto) 5.2 x10^3/uL (1.8-7.7) 5.9 x10^3/uL (1.8-7.7) Lymphocytes # (Auto) 1.6 x10^3/uL (1.0-4.8) 1.3 x10^3/uL (1.0-4.8) Monocytes # (Auto) 0.8 x10^3/uL (0.0-1.1) 0.8 x10^3/uL (0.0-1.1) Eosinophils # (Auto) 0.3 x10^3/uL (0.0-0.7) 0.1 x10^3/uL (0.0-0.7) Basophils # (Auto) 0.0 x10^3/uL (0.0-0.2) 0.0 x10^3/uL (0.0-0.2) Sodium Level 143 mmol/L (136-145) 144 mmol/L (136-145) Potassium Level 3.6 mmol/L (3.5-5.1) 4.2 mmol/L (3.5-5.1) Chloride Level 104 mmol/L (98-107) 107 mmol/L (98-107) Carbon Dioxide Level 28 mmol/L (21-32) 29 mmol/L (21-32) Anion Gap 11 (6-14) 8 (6-14) Blood Urea Nitrogen 18 mg/dL (8-26) 17 mg/dL (8-26) Creatinine 0.8 mg/dL (0.7-1.3) 0.8 mg/dL (0.7-1.3) Estimated GFR (Cockcroft-Gault) 96.1 96.1 BUN/Creatinine Ratio 23 (6-20) Glucose Level 124 mg/dL (70-99) 108 mg/dL (70-99) Calcium Level 9.4 mg/dL (8.5-10.1) 9.1 mg/dL (8.5-10.1) Magnesium Level 1.9 mg/dL (1.8-2.4) Total Bilirubin 0.5 mg/dL (0.2-1.0) Aspartate Amino Transf (AST/SGOT) 19 U/L (15-37) Alanine Aminotransferase (ALT/SGPT) 36 U/L (16-63) Alkaline Phosphatase 48 U/L (46-116) Troponin I Quantitative < 0.017 ng/mL (0.000-0.055) < 0.017 ng/mL (0.000-0.055) < 0.017 ng/mL (0.000-0.055) Total Protein 6.6 g/dL (6.4-8.2) Albumin 3.8 g/dL (3.4-5.0) Albumin/Globulin Ratio 1.4 (1.0-1.7) Images Images Chest x-ray with mild cardiomegaly and no acute changes. Assessment/Plan Assessment/Plan 1. Episode of chest pressure. Patient has no acute ischemic EKG changes. Troponin has been negative x3. He reportedly had a negative stress test and echo approximately 15 years ago. At this time would continue medications as below. We will follow up the patient as an outpatient. 2. Brief episode of paroxysmal atrial fibrillation. Now sinus rhythm. He has been started on metoprolol and Eliquis. Will follow as an outpatient with an outpatient monitor. 3. Hypertension. Patient's blood pressure is under better control. Continue medications as above. 4. Mild cardiomegaly on chest x-ray. Outpatient work-up as noted above. Thank you for allowing us to participate in the care of your patient. JLUIS PATRICIA MD Nov 23, 2020 15:59
[2020-11-23] MEDS ORDERED: TAMSULOSIN 0.4 MG CAP.ER.24H. PO SCH (21:00)
--- NOTE | 2020-11-24 10:11 | EKG ---
[facility] [address] [place] [address] Test Date: 2020-11-22 Test Time: 19:15:14 Pat Name: RONALDO TAN Department: Room: Gender: M Obstetric Assistant: : 1950 Requested By: STEVE MARSHALL Order Number: [id number] Reading MD: Measurements Intervals [place] Rate: 65 P: 49 OK: 248 QRS: 56 QRSD: 90 T: 40 QT: 388 QTc: 408 Interpretive Statements SINUS RHYTHM PROLONGED OK INTERVAL ABNORMAL ECG RI6.01 No previous ECG available for comparison
== END 2020-11-23 14:40 | disposition home or self-care (01) ==
LOC: ER 18:43 → 2 NORTH 21:53
PROVIDERS: ADMIT Family Medicine; ATTEND Family Medicine
DX: R07.89 Other chest pain (principal); R00.0 Tachycardia, unspecified; I10 Essential (primary) hypertension; I20.9 Angina pectoris, unspecified; I48.0 Paroxysmal atrial fibrillation; N40.0 Benign prostatic hyperplasia without lower urinary tract symptoms; E03.9 Hypothyroidism, unspecified; G47.30 Sleep apnea, unspecified; E66.9 Obesity, unspecified; Z87.891 Personal history of nicotine dependence; Z68.31 Body mass index [BMI] 31.0-31.9, adult; Z79.82 Long term (current) use of aspirin; Z90.49 Acquired absence of other specified parts of digestive tract
CPT/HCPCS: 36415; 71045; 80048; 80053; 83735; 84484; 85025; 93005; 96365; 96366; 96372; 99285; G0378; J1644; J3475; G0379

== ENCOUNTER 2022-01-26 04:29 | Emergency (ER) | payer MEDICARE, OTHER ==
[~2022-01-26] VITALS: Ht 182.9 cm; Wt 97.7 kg
[~2022-01-26 04:29] MED LIST: APIX5TAB PO; ASPI-630 PO; FINA5TAB4 PO; LEVO150T PO; METO50TA6 PO; TAMS0.4C97 PO
[2022-01-26] MEDS ORDERED: GABA300C18 PO (04:47)
[2022-01-26] MEDS ORDERED: FLEC100T PO (04:47)
[2022-01-26] MEDS ORDERED: ALPR0.5T6 PO (04:47)
--- NOTE | 2022-01-26 05:04 | PHYS DOC ---
Past Medical History Past Medical History: Hypothyroid Additional Past Medical Histor: BPH, SLEEP APNEA Past Surgical History: Cholecystectomy Additional Past Surgical Histo: SHOULDER Smoking Status: Never Smoker Alcohol Use: None Adult General Chief Complaint Chief Complaint: CONSTIPATION HPI HPI The patient is a 72-year-old male with a history of hypertension and paroxysmal atrial fibrillation on apixaban. He presents for evaluation of constipation x2 weeks. Patient states he has been unable to have a normal bowel movement for that entire interval, though he has had some modest results from an enema and glycerin suppositories. He endorses modestly diminished oral intake. He denies any associated abdominal pain. He denies nausea or vomiting, upper respiratory congestion/rhinorrhea, cough, sore throat, shortness of breath or chest pain of any kind, flank pain, midline back pain, dysuria, hematuria, polyuria or oliguria. Patient is alert, pleasantly and appropriately interactive and in absolutely no acute distress with appropriate vital signs upon initial evaluation here in the emergency department. He ambulated in with a narrow, steady gait. Review of Systems Review of Systems A 12 point review of systems was completed and was negative except where noted in HPI above. Current Medications Current Medications Current Medications Medications (Trade) Dose Ordered Sig/Madhuri Start Time Stop Time Status Last Admin Dose Admin Info (CONTRAST GIVEN -- Rx MONITORING) 1 each PRN DAILY PRN 01/26/22 05:30 01/28/22 05:29 Iohexol (Omnipaque 300 Mg/ml) 75 ml 1X ONCE 01/26/22 05:30 01/26/22 05:31 DC 01/26/22 05:38 75 ML Sodium Chloride 1,000 ml @ 1,000 mls/hr 1X ONCE 01/26/22 05:30 01/26/22 06:29 01/26/22 05:05 1,000 MLS/HR Allergies Allergies Allergies Coded Allergies Type Severity Reaction Last Updated Verified No Known Drug Allergies 01/26/22 No Physical Exam Physical Exam 72-year-old male appearing nontoxic and in no acute distress. Head is normocephalic and atraumatic. Neck is supple and nontender. Oropharynx is moist. Lungs are clear to auscultation at all stations. There is a normal S1 and S2 without rubs or gallops and capillary refill is appropriate, less than 2 seconds globally. Abdomen is soft, nontender and nondistended without pulsatile mass. Skin is warm and dry without cyanosis, clubbing or edema. P sychiatrically, the patient demonstrates appropriate mood and affect and is alert. Evaluation of the extremities reveals BUEs and BLEs neurovascular intact distally with strength 5/5, sensation intact light touch in all nerve distributions, radial, DP and PT pulses 2+ and equal bilaterally, capillary refill less than 2 seconds, hands and feet warm and well-perfused. No dependent peripheral edema distally. No calf tenderness or swelling bilaterally. Homans test is negative bilaterally. Current Patient Data Vital Signs Vital Signs Date Time Temp Pulse Resp B/P (MAP) Pulse Ox O2 Delivery O2 Flow Rate FiO2 01/26/22 04:48 98.6 61 12 162/77 (105) 97 Room Air 98.6 Lab Values Laboratory Tests Test 01/26/22 05:05 White Blood Count 6.6 x10^3/uL (4.0-11.0) Red Blood Count 4.95 x10^6/uL (4.30-5.70) Hemoglobin 14.7 g/dL (13.0-17.5) Hematocrit 43.0 % (39.0-53.0) Mean Corpuscular Volume 87 fL (79-100) Mean Corpuscular Hemoglobin 30 pg (25-35) Mean Corpuscular Hemoglobin Concent 34 g/dL (31-37) Red Cell Distribution Width 12.9 % (11.5-14.5) Platelet Count 181 x10^3/uL (140-400) Neutrophils (%) (Auto) 68 % (31-73) Lymphocytes (%) (Auto) 20 % (24-48) L Monocytes (%) (Auto) 10 % (0-9) H Eosinophils (%) (Auto) 2 % (0-3) Basophils (%) (Auto) 1 % (0-3) Neutrophils # (Auto) 4.5 x10^3/uL (1.8-7.7) Lymphocytes # (Auto) 1.3 x10^3/uL (1.0-4.8) Monocytes # (Auto) 0.7 x10^3/uL (0.0-1.1) Eosinophils # (Auto) 0.1 x10^3/uL (0.0-0.7) Basophils # (Auto) 0.0 x10^3/uL (0.0-0.2) Sodium Level 142 mmol/L (136-145) Potassium Level 3.9 mmol/L (3.5-5.1) Chloride Level 104 mmol/L (98-107) Carbon Dioxide Level 26 mmol/L (21-32) Anion Gap 12 (6-14) Blood Urea Nitrogen 12 mg/dL (8-26) Creatinine 0.8 mg/dL (0.7-1.3) Estimated GFR (Cockcroft-Gault) 95.6 BUN/Creatinine Ratio 15 (6-20) Glucose Level 127 mg/dL (70-99) H Calcium Level 9.0 mg/dL (8.5-10.1) Total Bilirubin 0.9 mg/dL (0.2-1.0) Aspartate Amino Transferase (AST) 23 U/L (15-37) Alanine Aminotransferase (ALT) 30 U/L (16-63) Alkaline Phosphatase 46 U/L (46-116) Total Protein 6.4 g/dL (6.4-8.2) Albumin 4.0 g/dL (3.4-5.0) Albumin/Globulin Ratio 1.7 (1.0-1.7) Laboratory Tests 01/26/22 05:05 Laboratory Tests 01/26/22 05:05 EKG EKG [] Radiology/Procedures Radiology/Procedures [] Course & Med Decision Making Course & Med Decision Making Well-appearing 72-year-old gentleman presenting for evaluation of 2 weeks of constipation. Vital signs and clinical examination are reassuring. Given duration and severity of symptoms will place IV and given IV fluid bolus, check basic labs and a CT scan of the abdomen and pelvis with contrast. We will then reevaluate. 0600: Labs unremarkable. Patient resting comfortably in no acute distress. Pending CT imaging, transition of care to Dr. Daniels. Alyssia Disclaimer Alyssia Disclaimer This electronic medical record was generated, in whole or in part, using a voice recognition dictation system. Departure Departure Impression: Primary Impression: Acute constipation Condition: STABLE Referrals: AVRIL FINLEY (PCP) DAYTON PADILLA MD Jan 26, 2022 05:04
[2022-01-26] MEDS: IV NORMAL SALINE 1000ML BAG 1,000 ML IV ONE (05:05)
[2022-01-26 05:16] LABS: BASO % 1 % (0-3); EOS # 0.1 x10^3/uL (0.0-0.7); EOS % 2 % (0-3); HEMOGLOBIN 14.7 g/dL (13.0-17.5); LYMPH # 1.3 x10^3/uL (1.0-4.8); LYMPH % 20 % (24-48); MEAN CORPUSCULAR HEMOGLOBIN 30 pg (25-35); MEAN CORPUSCULAR HGB CONC 34 g/dL (31-37); MEAN CORPUSCULAR VOLUME 87 fL (79-100); MONO # 0.7 x10^3/uL (0.0-1.1); MONO % 10 % (0-9); NEUT # 4.5 x10^3/uL (1.8-7.7); NEUT % 68 % (31-73); PLATELET COUNT 181 x10^3/uL (140-400); RED BLOOD COUNT 4.95 x10^6/uL (4.30-5.70); RED CELL DISTRIBUTION WIDTH 12.9 % (11.5-14.5); WHITE BLOOD COUNT 6.6 x10^3/uL (4.0-11.0)
[2022-01-26 05:24] LABS: CREATININE 0.8 mg/dL (0.7-1.3); GFR 95.6; POTASSIUM 3.9 mmol/L (3.5-5.1)
[2022-01-26 05:30] LABS: ALBUMIN/GLOBULIN RATIO 1.7 (1.0-1.7); TOTAL BILIRUBIN 0.9 mg/dL (0.2-1.0); TOTAL PROTEIN 6.4 g/dL (6.4-8.2)
[2022-01-26] MEDS ORDERED: CONTRAST GIVEN. MC PRN (05:30)
[2022-01-26] MEDS: IOHEXOL 300 MG/ML 100ML VIAL. IV ONE (05:38)
--- NOTE | 2022-01-26 05:57 | RAD ---
EXAMINATION: CT ABDOMEN+PELVIS W CLINICAL HISTORY: Constipation x2 weeks. TECHNIQUE: CT of the abdomen and pelvis was performed using standard technique, scanning from just ab ove the dome of the diaphragm to the symphysis pubis following administration of intravenous contrast . CT Dose Reduction Employed: One or more of the following individualized dose reduction techniques wer e utilized for this examination: 1. Automated exposure control 2. Adjustment of the mA and/or kV ac cording to patient size 3. Use of iterative reconstruction technique. COMPARISON: None FINDINGS: Visualized heart and lungs unremarkable. Subcentimeter hypoenhancing focus in the posterior inferior right hepatic lobe, too small adequately characterize. Biliary ductal prominence status post cholecystectomy. Pancreas, spleen, adrenal glands , and kidneys unremarkable. Minimally filled urinary bladder. Nonenlarged prostate. No bowel dilation or definite wall thickening. Stool throughout much of the colon. Mild colonic diver ticulosis. Appendix within normal limits. Mild arterial atherosclerotic calcification without aneurysm. Multilevel thoracolumbar degenerative changes. 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 IMPRESSION: No evidence of acute abdominopelvic abnormality. Electronically signed by: Jonatan Hoang DO (01/26/2022 5:54 AM) [facility]
--- NOTE | 2022-01-26 06:45 | PHYS DOC ---
Past Medical History Past Medical History: Hypothyroid Additional Past Medical Histor: BPH, SLEEP APNEA Past Surgical History: Cholecystectomy Additional Past Surgical Histo: SHOULDER Smoking Status: Never Smoker Alcohol Use: None Adult General Chief Complaint Chief Complaint: CONSTIPATION HPI HPI Patient is a 72 year old [f__sex] who presents with [] Review of Systems Review of Systems Constitutional: Denies fever or chills [] Eyes: Denies change in visual acuity, redness, or eye pain [] HENT: Denies nasal congestion or sore throat [] Respiratory: Denies cough or shortness of breath [] Cardiovascular: No additional information not addressed in HPI [] GI: Denies abdominal pain, nausea, vomiting, bloody stools or diarrhea [] : Denies dysuria or hematuria [] Musculoskeletal: Denies back pain or joint pain [] Integument: Denies rash or skin lesions [] Neurologic: Denies headache, focal weakness or sensory changes [] Endocrine: Denies polyuria or polydipsia [] All other systems were reviewed and found to be within normal limits, except as documented in this note. Current Medications Current Medications Current Medications Medications (Trade) Dose Ordered Sig/Madhuri Start Time Stop Time Status Last Admin Dose Admin Info (CONTRAST GIVEN -- Rx MONITORING) 1 each PRN DAILY PRN 01/26/22 05:30 01/28/22 05:29 Iohexol (Omnipaque 300 Mg/ml) 75 ml 1X ONCE 01/26/22 05:30 01/26/22 05:31 DC 01/26/22 05:38 75 ML Sodium Chloride 1,000 ml @ 1,000 mls/hr 1X ONCE 01/26/22 05:30 01/26/22 06:29 DC 01/26/22 05:05 1,000 MLS/HR Allergies Allergies Allergies Coded Allergies Type Severity Reaction Last Updated Verified No Known Drug Allergies 01/26/22 No Physical Exam Physical Exam Constitutional: Well developed, well nourished, no acute distress, non-toxic appearance. [] HENT: Normocephalic, atraumatic, bilateral external ears normal, oropharynx moist, no oral exudates, nose normal. [] Eyes: PERRLA, EOMI, conjunctiva normal, no discharge. [] Neck: Normal range of motion, no tenderness, supple, no stridor. [] Cardiovascular:Heart rate regular rhythm, no murmur [] Lungs & Thorax: Bilateral breath sounds clear to auscultation [] Abdomen: Bowel sounds normal, soft, no tenderness, no masses, no pulsatile masses. [] Skin: Warm, dry, no erythema, no rash. [] Back: No tenderness, no CVA tenderness. [] Extremities: No tenderness, no cyanosis, no clubbing, ROM intact, no edema. [] Neurologic: Alert and oriented X 3, normal motor function, normal sensory function, no focal deficits noted. [] Psychologic: Affect normal, judgement normal, mood normal. [] Current Patient Data Vital Signs Vital Signs Date Time Temp Pulse Resp B/P (MAP) Pulse Ox O2 Delivery O2 Flow Rate FiO2 01/26/22 06:37 56 21 168/84 (112) 99 Room Air 01/26/22 04:48 98.6 98.6 Lab Values Laboratory Tests Test 01/26/22 05:05 White Blood Count 6.6 x10^3/uL (4.0-11.0) Red Blood Count 4.95 x10^6/uL (4.30-5.70) Hemoglobin 14.7 g/dL (13.0-17.5) Hematocrit 43.0 % (39.0-53.0) Mean Corpuscular Volume 87 fL (79-100) Mean Corpuscular Hemoglobin 30 pg (25-35) Mean Corpuscular Hemoglobin Concent 34 g/dL (31-37) Red Cell Distribution Width 12.9 % (11.5-14.5) Platelet Count 181 x10^3/uL (140-400) Neutrophils (%) (Auto) 68 % (31-73) Lymphocytes (%) (Auto) 20 % (24-48) L Monocytes (%) (Auto) 10 % (0-9) H Eosinophils (%) (Auto) 2 % (0-3) Basophils (%) (Auto) 1 % (0-3) Neutrophils # (Auto) 4.5 x10^3/uL (1.8-7.7) Lymphocytes # (Auto) 1.3 x10^3/uL (1.0-4.8) Monocytes # (Auto) 0.7 x10^3/uL (0.0-1.1) Eosinophils # (Auto) 0.1 x10^3/uL (0.0-0.7) Basophils # (Auto) 0.0 x10^3/uL (0.0-0.2) Sodium Level 142 mmol/L (136-145) Potassium Level 3.9 mmol/L (3.5-5.1) Chloride Level 104 mmol/L (98-107) Carbon Dioxide Level 26 mmol/L (21-32) Anion Gap 12 (6-14) Blood Urea Nitrogen 12 mg/dL (8-26) Creatinine 0.8 mg/dL (0.7-1.3) Estimated GFR (Cockcroft-Gault) 95.6 BUN/Creatinine Ratio 15 (6-20) Glucose Level 127 mg/dL (70-99) H Calcium Level 9.0 mg/dL (8.5-10.1) Total Bilirubin 0.9 mg/dL (0.2-1.0) Aspartate Amino Transferase (AST) 23 U/L (15-37) Alanine Aminotransferase (ALT) 30 U/L (16-63) Alkaline Phosphatase 46 U/L (46-116) Total Protein 6.4 g/dL (6.4-8.2) Albumin 4.0 g/dL (3.4-5.0) Albumin/Globulin Ratio 1.7 (1.0-1.7) Laboratory Tests 01/26/22 05:05 Laboratory Tests 01/26/22 05:05 EKG EKG [] Radiology/Procedures Radiology/Procedures [] Course & Med Decision Making Course & Med Decision Making Pertinent Labs and Imaging studies reviewed. (See chart for details) [] Dragon Disclaimer Dragon Disclaimer This electronic medical record was generated, in whole or in part, using a voice recognition dictation system. Departure Departure Impression: Primary Impression: Acute constipation Disposition: HOME / SELF CARE / HOMELESS Condition: STABLE Referrals: AVRIL FINLEY (PCP) Patient Instructions: Constipation, Adult Scripts Psyllium Husk (METAMUCIL) 0.52 Gm Capsule 2 CAP PO BID for 30 Days, #120 CAP 0 Refills Prov: JUANCHO SORIA MD 01/26/22 JUANCHO SORIA MD Jan 26, 2022 06:45
[2022-01-26] MEDS ORDERED: PSYL0.5215 PO (06:52)
[2022-01-26 07:04] VITALS: BP 148/94
== END 2022-01-26 07:05 | disposition home or self-care (01) ==
LOC: ER 04:29
DX: K59.00 Constipation, unspecified (principal); I10 Essential (primary) hypertension; I48.0 Paroxysmal atrial fibrillation; E03.9 Hypothyroidism, unspecified; Z90.49 Acquired absence of other specified parts of digestive tract
CPT/HCPCS: 36415; 74177; 80053; 85025; 96360; 99285; J7030; Q9967